=== PATIENT | female | born 1990 | race Caucasian/White ===

== ENCOUNTER 2020-12-22 12:02 | Emergency (ER) | payer OTHER ==
[~2020-12-22] VITALS: Ht 172.7 cm; Wt 102.0 kg
[2020-12-22] MEDS ORDERED: MINIPRESS5 M1 PO (13:27)
[2020-12-22] MEDS ORDERED: METHOCARBAMOL500 M1 PO (13:27)
[2020-12-22] MEDS ORDERED: LASIX20 M1 PO (13:27)
[2020-12-22] MEDS ORDERED: OMEPRAZOLE40 MG PO (13:27)
[2020-12-22] MEDS ORDERED: MIDODRINE HCL10 MG PO (13:28)
[2020-12-22] MEDS ORDERED: BUSPIRONE HYDRO10 MG PO (13:28)
[2020-12-22] MEDS ORDERED: TOPROL XL100 MG PO (13:28)
[2020-12-22] MEDS ORDERED: ESTRADIOL0.1 MG/24 TD (13:29)
[2020-12-22] MEDS ORDERED: EMGALITY120 MG/1 M SQ (13:30)
[2020-12-22] MEDS ORDERED: AMBIEN10 MG PO (13:30)
[2020-12-22] MEDS ORDERED: LITHIUM CA150 MG/CAP (13:30)
[2020-12-22] MEDS ORDERED: PROMETHAZINE12.5 M5 (13:31)
[2020-12-22] MEDS ORDERED: MAXALT10 M2 PO (13:31)
[2020-12-22] MEDS ORDERED: IRON90 MG PO (13:32)
[2020-12-22] MEDS ORDERED: MAGNESIUM100 M1 PO (13:32)
[2020-12-22] MEDS ORDERED: LAMICTAL 100MG100 MG PO (13:32)
[2020-12-22] MEDS ORDERED: SUPER QUINTS1 EACH PO (13:33)
[2020-12-22] MEDS ORDERED: CALCIUM CITRAT200 M2 PO (13:33)
[2020-12-22] MEDS ORDERED: GARLIC OIL1000 M1 PO (13:35)
[2020-12-22] MEDS ORDERED: VITAMIN D31250 MC1 PO (13:35)
[2020-12-22] MEDS ORDERED: VITAMIN E90 M1 (13:37)
[2020-12-22 14:57] VITALS: BP 122/72
== END 2020-12-22 14:57 | disposition home or self-care (01) ==
LOC: ED 12:02
DX: S39.012A Strain of muscle, fascia and tendon of lower back, initial encounter (principal); S50.01XA Contusion of right elbow, initial encounter; V49.50XA Passenger injured in collision with unspecified motor vehicles in traffic accident, initial encounter
CPT/HCPCS: J2360